=== PATIENT | male | born 1975 | race Caucasian/White ===

== ENCOUNTER 2021-03-29 11:44 | Emergency (ER) | payer MEDICAID, OTHER ==
[~2021-03-29] VITALS: Ht 182.9 cm; Wt 86.2 kg
[2021-03-29 11:44] VITALS: BP 108/74
[2021-03-29] MEDS ORDERED: KETOROLAC TROMETH 30 MG/ML 1ML VIAL IV ONE (13:00)
[2021-03-29] MEDS ORDERED: SODIUM CHLORIDE 0.9% 1,000 ML IV ONE (13:00)
[2021-03-29 13:57] LABS: Basophils # (auto) 0.1 10 ^3/uL (0-0.2); Eosinophils # (auto) 0 10 ^3/uL (0-0.8); Eosinophils % (auto) 0.2 % (0.0-7.0); Hematocrit 39.4 % (41.0-53.0); Hemoglobin 13.3 g/dL (13.5-17.5); Lymphocytes # (auto) 1.6 10 ^3/uL (0.4-5.4); Lymphocytes % (auto) 13.4 % (10.0-50.0); Mean Corpuscular Hemoglobin 31.3 pg (28.0-32.0); Mean Corpuscular Hgb Conc. 33.7 g/dL (32.0-36.0); Mean Corpuscular Volume 92.9 fL (80.0-100.0); Monocytes # (auto) 1.2 10 ^3/uL (0-1.3); Monocytes % (auto) 10.1 % (0.0-12.0); Neutrophils # (auto) 8.7 10 ^3/uL (1.6-8.6); Neutrophils % (auto) 75.3 % (37.0-80.0); Red Blood Cells 4.24 10^6/uL (4.5-5.90); Red Cell Distribution Width 13.3 % (11.8-14.3); White Blood Cell 11.6 10^3/uL (4.4-10.8)
[2021-03-29 14:46] LABS: Potassium 3.4 mmol/L (3.5-5.1)
[2021-03-29 14:49] LABS: Albumin 2.6 g/dL (3.4-5.0); BUN/Creatinine Ratio 17.7; Calcium 8.7 mg/dL (8.5-10.1)
[2021-03-29] MEDS ORDERED: SULFAMETHOX W/TRIMETH(800/160MG) DS TAB PO ONE (15:00)
[2021-03-29 15:07] LABS: Bilirubin, Total 0.5 mg/dL (0.2-1.0); CRP High Sensitivity 12.8 mg/dL (< 0.3); Total Protein 7.5 g/dL (6.4-8.2)
== END 2021-03-29 18:03 | disposition left against medical advice (07) ==
LOC: ER 11:44
DX: L03.116 Cellulitis of left lower limb (principal); F17.210 Nicotine dependence, cigarettes, uncomplicated; Z53.29 Procedure and treatment not carried out because of patient's decision for other reasons
CPT/HCPCS: 36415; 73562; 80053; 83605; 85025; 85652; 86141; 93971

== ENCOUNTER 2021-03-29 23:16 | Emergency (ER) | payer SELFPAY ==
[~2021-03-29] VITALS: Ht 182.9 cm; Wt 86.2 kg
[2021-03-30 02:00] VITALS: BP 122/75
== END 2021-03-30 05:03 | disposition home or self-care (01) ==
LOC: ER 23:16
DX: L03.116 Cellulitis of left lower limb (principal); R21 Rash and other nonspecific skin eruption; F17.210 Nicotine dependence, cigarettes, uncomplicated

== ENCOUNTER 2021-10-30 01:44 | Emergency (ER) | payer MEDICAID ==
[~2021-10-30] VITALS: Ht 182.9 cm; Wt 81.6 kg
[2021-10-30 01:46] VITALS: BP 146/83
== END 2021-10-30 05:24 | disposition left against medical advice (07) ==
LOC: ER 01:44
DX: R22.0 Localized swelling, mass and lump, head (principal); Z53.21 Procedure and treatment not carried out due to patient leaving prior to being seen by health care provider
CPT/HCPCS: 70486

== ENCOUNTER 2021-10-30 12:41 | Emergency (ER) | payer MEDICAID ==
[~2021-10-30] VITALS: Ht 182.9 cm; Wt 74.8 kg
[2021-10-30] MEDS ORDERED: ceFAZolin 1GM/50ML 50 ML IV ONE (13:30)
[2021-10-30] MEDS ORDERED: ONDANSETRON HCL 4 MG/2 ML VIAL IV ONE (13:45)
[2021-10-30] MEDS ORDERED: MORPHINE SULFATE 4 MG/ML SYR/VIAL IV ONE (13:45)
[2021-10-30 15:09] VITALS: BP 144/89
== END 2021-10-30 15:28 | disposition short-term general hospital (02) ==
LOC: ER 12:41
DX: S02.652A Fracture of angle of left mandible, initial encounter for closed fracture (principal); S02.601A Fracture of unspecified part of body of right mandible, initial encounter for closed fracture; F17.200 Nicotine dependence, unspecified, uncomplicated; F12.10 Cannabis abuse, uncomplicated; F15.10 Other stimulant abuse, uncomplicated; F14.10 Cocaine abuse, uncomplicated; Z20.822 Contact with and (suspected) exposure to COVID-19; Y08.89XA Assault by other specified means, initial encounter; Y93.89 Activity, other specified; Y92.89 Other specified places as the place of occurrence of the external cause; Y99.8 Other external cause status
CPT/HCPCS: 36415; 87426; 96365; 96375; 99285; J0690; J2270; J2405

== ENCOUNTER 2022-06-17 01:13 | Emergency (ER) | payer MEDICAID ==
[~2022-06-17] VITALS: Ht 182.9 cm; Wt 68.0 kg
[2022-06-17] MEDS ORDERED: SODIUM CHLORIDE 0.9% 1,000 ML IV ONE (01:30)
[2022-06-17] MEDS ORDERED: KETOROLAC TROMETH 30 MG/ML 1ML VIAL IV ONE (01:30)
[2022-06-17 01:54] LABS: Basophils # (auto) 0.1 10 ^3/uL (0-0.2); Basophils % (auto) 1.1 % (0.0-2.0); Eosinophils # (auto) 0.1 10 ^3/uL (0-0.8); Eosinophils % (auto) 1.7 % (0.0-7.0); Hemoglobin 14.9 g/dL (13.5-17.5); Lymphocytes # (auto) 1.4 10 ^3/uL (0.4-5.4); Lymphocytes % (auto) 16.9 % (10.0-50.0); Mean Corpuscular Volume 90.9 fL (80.0-100.0); Monocytes # (auto) 0.8 10 ^3/uL (0-1.3); Monocytes % (auto) 9.8 % (0.0-12.0); Neutrophils # (auto) 5.8 10 ^3/uL (1.6-8.6); Neutrophils % (auto) 70.5 % (37.0-80.0); Nucleated Red Blood Cells % 0.2 %; Red Blood Cells 4.95 10^6/uL (4.5-5.90); Red Cell Distribution Width 12.7 % (11.8-14.3); White Blood Cell 8.2 10^3/uL (4.4-10.8)
[2022-06-17 02:07] LABS: Potassium 3.9 mmol/L (3.5-5.1)
[2022-06-17 02:08] LABS: Albumin 3.4 g/dL (3.4-5.0); Calcium 9.1 mg/dL (8.5-10.1)
[2022-06-17 02:11] LABS: BUN/Creatinine Ratio 17.3
[2022-06-17 02:13] LABS: Bilirubin, Total 0.2 mg/dL (0.2-1.0); Total Protein 7.6 g/dL (6.4-8.2)
[2022-06-17 04:46] LABS: Urine Bacteria FEW /hpf (None Seen); Urine Blood 3+ /uL (Negative); Urine Hyaline Cast MOD /lpf (0 - 2); Urine Mucus FEW (None Seen); Urine Specific Gravity 1.012 (1.001-1.035); Urine WBC 11 /hpf (0 - 3)
[2022-06-17] MEDS ORDERED: CEFTRIAXONE SODIUM 2 GM in D5W 5% 50 ML IV ONE (08:00)
== END 2022-06-17 05:41 | disposition left against medical advice (07) ==
LOC: ER 01:13
DX: N39.0 Urinary tract infection, site not specified (principal); F17.210 Nicotine dependence, cigarettes, uncomplicated
CPT/HCPCS: 36415; 74176; 80053; 81001; 83690; 85025; 87086; 96361; 96374; 99284; J0696; J1885; J7030; J7060

== ENCOUNTER 2022-12-04 00:03 | Emergency (ER) | payer MEDICAID | END 2022-12-04 00:50 | disposition home or self-care (01) | LOC: ER 00:03 | DX: M79.671 Pain in right foot (principal); F15.10 Other stimulant abuse, uncomplicated; F12.10 Cannabis abuse, uncomplicated; F17.200 Nicotine dependence, unspecified, uncomplicated ==

== ENCOUNTER 2024-10-03 18:41 | Emergency (ER) | payer MEDICAID ==
[~2024-10-03] VITALS: Ht 182.9 cm; Wt 82.5 kg
--- NOTE | 2024-10-03 19:16 | ED.PDOC ---
SOB-HPI HPI Comments 49Y M with PMHx PNA presents to ED for chief complaint chest congestion x2days with productive cough, SOB, subjective fever, and abd pain. Pt states he believes he has PNA again. Pt denies sick contact and recent travel. No other symptoms reported. Time Seen by MD: 18:52 Primary Care Provider: NONE Reviewed notes: Nurses Notes, Medications, Allergies Information Source: Patient Mode of Arrival: Ambulatory Severity: Mild Timing: Days Duration: Since onset Context: At Rest PE Risk Factors: None History of: None Prehospital treatment: None Modifying Factors: Nothing Associated Signs and Symptoms: Cough, Other If cough with SOB: Productive Past Medical History PAST MEDICAL HISTORY: Denies Surgical History: Denies all surgeries Family History Family History: No family hx of Cancer, No family hx of DM, No family hx of H eart lynn, No family hx of HTN, No family hx ofKidney lynn, No family hx of Liver lynn, No family hx of Lung lynn, No family hx of Stroke Social History Smoker: Less Than 1 Pack/Day Alcohol: Occasionally Drugs: Marijuana, Methamphetamine Lives In: Home Constitutional: reports: fever; denies: chills, diaphoresis, fatigue, malaise, sweats, weakness, others EENTM: denies: blurred vision, double vision, ear bleeding, ear discharge, ear drainage, ear pain, ear ringing, eye pain, eye redness, hearing loss, mouth pain, mouth swelling, nasal discharge, nose bleeding, nose congestion, nose pain, photophobia, tearing, throat pain, throat swelling, voice changes, others Respiratory: reports: cough, shortness of breath, others (chest congestion); denies: hemoptysis, orthopnea, SOB at rest, SOB with excertion, stridor, wheezing Cardiovascular: denies: chest pain, dizzy spells, diaphoresis, Dyspnea on exertion, edema, irregular heart beat, left arm pain, lightheadedness, palpitations, PND, syncope, others Gastrointestinal: reports: abdominal pain; denies: abdomen distended, blood streaked bowels, constipated, diarrhea, dysphagia, difficulty swallowing, hematemesis, melena, nausea, poor appetite, poor fluid intake, rectal bleeding, rectal pain, vomiting, others Genitourinary: denies: burning, dysuria, flank pain, frequency, hematuria, incontinence, penile discharge, penile sore, pain, testicle pain, testicle swelling, urgency, others Neurological: denies: dizziness, fainting, headache, left sided numbness, left sided weakness, numbness, paresthesia, pre-existing deficit, right sided numbness, right sided weakness, seizure, speech problems, tingling, tremors, weakness, others Musculoskeletal: denies: back pain, gout, joint pain, joint swelling, muscle pain, muscle stiffness, neck pain, others Integumetry: denies: bruises, change in color, change in hair/nails, dryness, laceration, lesions, lumps, rash, wounds, others Allergic/Immunocompromised: denies: Difficulty Healing, Frequent Infections, Hives, Itching, others Hematologic/Lymphatic: denies: anemia, blood clots, easy bleeding, easy bruising, swollen glands, others Endocrine: denies: excessive hunger, excessive sweating, excessive thirst, excessive urination, flushing, intolerance to cold, intolerance to heat, unexplained weight gain, unexplained weight loss, others Psychiatric: denies: anxiety, bipolar disorder, depression, hopeless, panic disorder, schizophrenia, sleepless, suicidal, others All Other Systems: Reviewed and Negative Physical Exam General Appearance: Moderate Distress (Patient was in moderate distress at time of evaluation. Patient was very histrionic.), Normal HEENT: Normal ENT Inspection, Pharynx Normal, TMs Normal Neck: Full Range of Motion, Non-Tender, Normal, Normal Inspection Respiratory: Chest Non-Tender, Lungs Clear, No Accessory Muscle Use, No Respiratory Distress, Normal Breath Sounds, Other ( Unremarkable auscultation bilateral lung benoit.) Cardiovascular: No Edema, No JVD, No Murmur, No Gallop, Normal Peripheral Pulses, Regular Rate/Rhythm Breast Exam: Deferred Gastrointestinal: No Organomegaly, Non Tender, No Pulsatile Mass, Normal Bowel Sounds, Soft Genitalia: Deferred Pelvic: Deferred Rectal: Deferred Extremities: No calf tenderness, Normal capillary refill, Normal inspection, Normal range of motion, Non-tender, No pedal edema Musculoskeletal : Apperance: Normal Neurologic: Alert, No Motor Deficits, Normal Affect, Normal Mood, No Sensory Deficits Cerebellar Function: Normal Reflexes: Normal Skin: Dry, Normal Color, Warm Lymphatic: No Adenopathy Was a procedure done? Was a procedure done?: No Differential Dx Differential Diagnosis: Bronchitis, Pneumonia, URI, Other ( Influenza a/ B, COVID-19, acute coronary event) X-Ray, Labs, Meds, VS Vital Signs Date Time Temp Pulse Resp B/P (MAP) Pulse Ox O2 Delivery O2 Flow Rate FiO2 10/03/24 20:08 22 98 Room Air* 0 21 21 10/03/24 19:50 97.7 99 18 114/82 (93) 97 97.7 10/03/24 19:33 97.7 10/03/24 19:30 18 98 Room Air* 0 21 10/03/24 19:25 97.7 99 18 114/82 (93) 97 97.7 Lab Test 10/03/24 19:30 10/03/24 19:16 Range/Units Influenza Type A Antigen Negative Negative Influenza Type B Antigen Negative Negative SARS-CoV-2 Antigen (Rapid) Negative NEGATIVE Troponin I High Sensitivity 4 </=54 ng/L Current Medications Medications (Trade) Dose Ordered Sig/Crescencio Route Start Time Stop Time Status Last Admin Albuterol (Ventolin Medneb) 5 mg ONCE ONCE NEB 10/03/24 19:00 10/03/24 19:02 DC 10/03/24 20:10 Ipratropium [place] (Atrovent Medneb) 0.5 mg ONCE ONCE NEB 10/03/24 19:00 10/03/24 19:02 DC 10/03/24 20:10 Dexamethasone Sodium Phosphate (Decadron Injection) 10 mg ONCE ONCE IM 10/03/24 19:00 10/03/24 19:02 DC 10/03/24 19:34 Acetaminophen (Tylenol Tablet) 1,000 mg ONCE ONCE PO 10/03/24 19:00 10/03/24 19:02 DC 10/03/24 19:33 [place] [id number] Ph: [phone] DIAGNOSTIC IMAGING Diagnostic Imaging Report : [id number] Signed PATIENT: DAGMAR MIGUEL ACCT: [id number] UNIT: [id number] : 1975 LOC: ER ROOM / BED: / AGE / SEX: 49 / M ADM STATUS: REG ER SERVICE [id number] ORDERING PHYSICIAN: CARA THOMAS PAC PROCEDURE(s): CXRP - CHEST PORTABLE REASON: Shortness of breath ORDER NUMBER(s): [id number], ACCESSION NUMBER(s): [id number] EXAMINATION: AP portable chest radiograph CLINICAL HISTORY: Shortness of breath COMPARISON: None FINDINGS: Apices partially excluded. No lobar consolidation identified. No sizable pleural effusion or pneumothorax. The cardiomediastinal silhouette appears within normal limits given technique. IMPRESSION: No acute cardiopulmonary findings as visualized. ATED BY: YONATAN CHAMPAGNE MD DICTATED DATE/TIME: 10/03/241943 SIGNED BY: YONATAN CHAMPAGNE MD SIGNED DATE/TIME: 10/03/241943 CC: X-Ray, Labs, Meds, VS Comment All studies performed the ED were evaluated by me personally. Imaging studies were unremarkable for any consolidation or intrapulmonary concerns. Swabs studies were unremarkable for influenza or COVID. Patient appears to be suffering from a viral upper respiratory illness. Advised patient utilize medication as needed as well as good hydration and healthy nutrition throughout illness event. Time of 1ST Reevaluation: 21:40 Reevaluation 1ST: Improved Consultation: PCP Patient Education/Counseling: Diagnosis, Treatment Family Education/Counseling: Diagnosis, Treatment, No Family Present Departure 1 Departure Time of Disposition: 21:41 Impression: Primary Impression: Viral upper respiratory illness Disposition: HOME / SELF CARE / HOMELESS Condition: Stable Additional Instructions: Advise utilizing medication as needed as well as good hydration and healthy nutrition throughout illness event. e-Prescriptions Benzonatate (Benzonatate) 100 Mg Cap 1 CAP PO TID, #20 CAP Prov: CARA THOMAS PAC 10/03/24 Albuterol Sulfate (Albuterol Sulfate Hfa) 108 Mcg/Act Aer 108 MCG IN Q4HP PRN, #1 AER Prov: CARA THOMAS PAC 10/03/24 Acetaminophen (Acetaminophen) 500 Mg Tab 500 MG PO Q4HP PRN, #30 TAB Prov: CARA THOMAS PAC 10/03/24 Discharged With: Self, Friend Critical Care Note Critical Care Time?: No Stability Stability form required: No Heart Score Heart Score: Heart Score Response (Comments) Value History Slightly Suspicious 0 EKG Repolarization Disturb 1 Age 45-64 1 Risk Factors No known risk factors 0 Troponin Normal limit 0 Total 2 I personally scribed for CARA THOMAS PAC ([email or web address]) on 10/03/24 at 19:16. Electronically submitted by Tomeka Rajput ([facility]). I personally scribed for CARA THOMAS PAC [facility] on 10/03/24 at 19:50. Electronically submitted by Tomeka Rajput ([facility]). CARA THOMAS PAC Oct 03, 2024 19:16
[2024-10-03 19:30] VITALS: RESP 18; O2SAT 98
[2024-10-03] MEDS: ACETAMINOPHEN 325 MG TAB PO ONE (19:33)
[2024-10-03] MEDS: DexAMETHasone SOD PHOS 10MG/1ML VIAL INJ IM ONE (19:34)
--- NOTE | 2024-10-03 19:47 | DVH ---
EXAMINATION: AP portable chest radiograph CLINICAL HISTORY: Shortness of breath COMPARISON: None FINDINGS: Apices partially excluded. No lobar consolidation identified. No sizable pleural effusion or pneumothorax. The cardiomediastinal silhouette appears within normal limits given technique. IMPRESSION: No acute cardiopulmonary findings as visualized.
[2024-10-03] MEDS: ALBUTEROL SULF 2.5 MG/0.5ML(0.5%) NEB SOLN NEB ONE (20:10)
[2024-10-03] MEDS: IPRATROPIUM BROM 0.5 MG/2.5ML INH SOL NEB ONE (20:10)
[2024-10-03 20:32] LABS: COVID19 ANTIGEN SOFIA FIA NEGATIVE (NEGATIVE); Rapid Influenza A Negative (Negative); Rapid Influenza B Negative (Negative)
[2024-10-03] MEDS ORDERED: ALBU108A5 IN (21:42)
[2024-10-03] MEDS ORDERED: BENZ100C97 PO (21:42)
[2024-10-03] MEDS ORDERED: ACET500T58 PO (21:42)
[2024-10-03 22:00] VITALS: BP 132/88; PULSE 101; RESP 16; TEMP 97.5; O2SAT 96
--- NOTE | 2024-10-04 06:46 | ECG ---
[facility] Test Date: 2024-10-03 Test Time: 21:50:38 Pat Name: DAGMAR MIGUEL Department: EMERGENCY Room: Gender: M [employer]: YF : 1975 Requested By: CARA THOMAS Order Number: [id number] Reading MD: Doron Nichole Measurements Intervals [place] Rate: 97 P: 73 VA: 135 QRS: 71 QRSD: 88 T: 65 QT: 361 QTc: 459 Interpretive Statements Sinus rhythm Biatrial enlargement Probable left ventricular hypertrophy Electronically Signed On 10-04-2024 19:22:38 PDT by Doron Nichole Please click the below link to view image of tracing.
== END 2024-10-03 22:06 | disposition home or self-care (01) ==
LOC: ER 18:52
DX: J06.9 Acute upper respiratory infection, unspecified (principal); B97.89 Other viral agents as the cause of diseases classified elsewhere; F17.210 Nicotine dependence, cigarettes, uncomplicated; Z20.822 Contact with and (suspected) exposure to COVID-19
CPT/HCPCS: 36415; 71045; 84484; 87426; 87804; 93005; 94640; 96372; 99285; J1100